=== PATIENT | male | born 1955 | race Caucasian/White ===

== ENCOUNTER 2023-10-24 16:41 | Emergency (ER) | payer MEDICARE ==
[~2023-10-24] VITALS: Ht 177.8 cm; Wt 98.0 kg
[2023-10-24 16:55] VITALS: BP 181/122; PULSE 86; RESP 18; TEMP 98.5; O2SAT 98
[2023-10-24] MEDS ORDERED: TORADOL ONE (17:32)
[2023-10-24] MEDS: TORADOL IM STA (17:45)
[2023-10-24 18:07] LABS: BASOPHIL # 0.1 10^3/uL (0.0-0.1); BASOPHIL % 0.7 % (0.2-1.2); EOSINOPHIL # 0.3 10^3/uL (0.0-0.2); EOSINOPHIL % 2.1 % (0.0-5.0); HEMATOCRIT(ML) 46.6 % (37.0-53.0); HEMOGLOBIN 15.2 g/dL (13.9-16.3); LYMPHOCYTES # 2.05 10^3/uL1 (1.0-4.8); LYMPHOCYTES % 16.9 % (24.0-44.0); MEAN CORP HGB CONCENTRATION 32.6 g/dL (33-36.5); MEAN CORP VOLUME 95.1 fL (78-100); MONOCYTES # 1.1 10^3/uL (0.3-0.8); MONOCYTES % 9.2 % (5.0-12.0); NEUTROPHIL # 8.6 10^3/uL (1.8-7.7); NEUTROPHILS % 70.9 % (41.0-85.0); PLATELET COUNT 269 10^3/uL (150-400); RED CELL DISTRIBUTION WIDTH 13.3 % (11.5-14.5); WHITE BLOOD CELL 12.1 10^3/uL (4.5-11.0)
[2023-10-24 18:08] LABS: +ADD MANUAL DIFF(NO CHRG) NO
[2023-10-24 18:13] VITALS: BP 175/110; PULSE 79; RESP 18; O2SAT 97
[2023-10-24 18:39] LABS: ALBUMIN(ML) 3.7 g/dL (3.4-5.0); ALBUMIN/GLOBULIN RATIO 1.027; ANION GAP 14.1; BUN/CREATININE RATIO 12.5 (10.0-20.0); CALCIUM 9.2 mg/dL (8.4-10.5); CARBON DIOXIDE 24.8 mmol/L (20.0-32); CREATININE SERUM 1.28 mg/dL (0.59-1.40); EST GFR, NON-AA 56.2 (>/=60); POTASSIUM 3.9 mmol/L (3.6-5.2); URIC ACID 5.3 mg/dL (3.5-7.2)
[2023-10-24] MEDS ORDERED: KENALOG-40 ONE (19:17)
[2023-10-24] MEDS: KENALOG-40 IM STA (19:18)
[2023-10-24 19:30] VITALS: BP 168/105; PULSE 84; RESP 18; O2SAT 98
[2023-10-24] MEDS ORDERED: DICL75TA2 PO (19:41)
[2023-10-24 19:42] VITALS: BP 174/97; PULSE 86; RESP 18; O2SAT 98
== END 2023-10-24 19:47 | disposition home or self-care (01) ==
LOC: ER 16:41
DX: M17.11 Unilateral primary osteoarthritis, right knee (principal); I10 Essential (primary) hypertension
CPT/HCPCS: 99284; 96372 ×2; 73560; 80053; 85025; 36415; 84145; 84550; 85651; J3301; J1885

== ENCOUNTER → 2023-10-25 | Outpatient (CLI) | payer MEDICARE ==
[~2023-10-25] MED LIST: DICL75TA2 PO
== END | disposition home or self-care (01) ==
LOC: LAB 12:48
PROVIDERS: ATTEND Orthopaedic Surgery
DX: M25.561 Pain in right knee (principal)
CPT/HCPCS: 36415; 87070; 87075